=== PATIENT | male | born 1995 | race Caucasian/White ===

== ENCOUNTER 2018-11-20 09:03 | Emergency (ER) | payer BC ==
--- NOTE | 2018-11-20 09:06 | EDPHY ---
H & P Source: Patient Exam Limitations: No limitations Time Seen by Provider: 11/20/18 09:06 HPI/ROS: HPI: This is a 23-year-old male who presents with Chief Complaint: Left index finger laceration Location: Left index finger Quality: Laceration Duration: Prior to arrival Signs and Symptoms: + bleeding, no radiation, no numbness, no weakness, no tingling, no incontinence, no decreased range of motion, no swelling,+ pain, no fever Timing: Acute Severity: Mild Context: Patient is right-hand dominant, current with his tetanus vaccination, presents with accidentally cutting the volar aspect of his left index finger while cutting an avocado for breakfast this morning. Patient reports that he immediately started to bleed and he applied direct pressure. Every time he would remove the pressure it would continued to bleed. He reports that he felt mild pain at the time but no pain at this time. He denies decreased range of motion, radiation, weakness, paresthesias. Modifying Factors: Direct pressure Comment: ROS: A comprehensive 10 system review of systems is otherwise negative aside from elements mentioned in the history of present illness. MEDICAL/SURGICAL/SOCIAL HISTORY: Medical history: Seasonal allergies. Does not take any regular medications. Surgical history: Denies Social history: Admits to social marijuana and alcohol use. CONSTITUTIONAL: Well-developed, well-nourished, young adult white male, awake and alert, no obvious distress HEENT: Atraumatic and normocephalic, PERRL, EOMI. Nares patent; no rhinorrhea; no nasal mucosal edema. Tympanic membranes clear. Oropharynx clear, no exudate and moist pink mucosa. Airway patent. No lymphadenopathy. No meningismus. Cardiovascular: Normal S1/S2, regular rate, regular rhythm, without murmur rub or gallop. PULMONARY/CHEST: Symmetrical and nontender. Clear to auscultation bilaterally. Good air movement. No accessory muscle usage. ABDOMEN: Soft, nondistended, nontender, no rebound, no guarding, no peritoneal signs, no masses or organomegaly. No CVAT. EXTREMITIES: 2/2 radial pulses, [employer] strength 5/5, left index finger volar aspect at the PIP joint shows 2.5 cm, deep, simple, linear laceration with scant amount of active bleeding. DI P/PIP/MCP joints have full range of flexion extension. Light touch sensation intact., no clubbing, no cyanosis or edema. NEUROLOGICAL: no focal neuro deficits. GCS 15. SKIN: Warm and dry, no erythema. no rash. Good capillary refill. (Jackie Thomason) Constitutional: Initial Vital Signs Temperature (C) 36.4 C 11/20/18 09:04 Heart Rate 71 11/20/18 09:04 Respiratory Rate 16 11/20/18 09:04 Blood Pressure 103/69 11/20/18 09:04 O2 Sat (%) 96 11/20/18 09:04 Allergies/Adverse Reactions: No Known Allergies Allergy (Unverified 11/20/18 09:07) Home Medications: Medication Instructions Recorded Citalopram 11/20/18 Medical Decision Making Procedures: Procedure: Laceration repair. Verbal consent was obtained from the patient. The 2.5 cm, deep, linear laceration on the left index finger was anesthetized in the usual fashion using 2 mL of 1% lidocaine without epinephrine. The wound was irrigated, draped and explored to its base with a gloved finger. There were no deep structures involved. No tendon injury was identified. The wound was repaired with #3, 5- 0 Prolene in simple interrupted pattern. Good hemostasis was achieved and patient tolerated procedure well. Xeroform and clean sterile dressing applied. The procedure was performed by myself. (Jackie Thomason) ED Course/Re-evaluation: Vital signs reviewed and stable upon arrival. Tetanus booster up-to-date. Local anesthesia provided and copiously irrigated Laceration repaired with # 3 nonabsorbable sutures Xeroform and clean sterile dressing applied Verbal and written wound care instructions provided No signs of neurovascular compromise/tenting of skin/compartment syndrome/ extremities and joints examined above and below area of concern and are neurovascularly intact. This patient was seen under the supervision of my secondary supervising physician. I evaluated and cared for this patient independently. (Jackie Thomason) I did not see this patient while he was in the emergency department. However his care was discussed with the PA while the patient was in the department. I agree with treatment plan and management (Blayne Bravo) Differential Diagnosis: Differential diagnosis includes but is not limited to laceration, foreign body, nerve injury, tendon injury, nail injury. (Jackie Thomason) Departure - Departure Disposition: Home, Routine, Self-Care Clinical Impression: Laceration of index finger of left hand without complication Qualifiers: Encounter type: initial encounter Qualified Code(s): S61.211A - Laceration without foreign body of left index finger without damage to nail, initial encounter Condition: Good Instructions: Care For Your Stitches (ED), Finger Laceration (ED) Additional Instructions: Keep the dressing dry and in place for 48 hours. After 48 hours, you may remove the dressing; wash the site daily with mild soap and water; then pat dry. Apply topical antibiotic ointment and keep covered with sterile dressing until fully healed. Do not soak in a bathtub or go swimming until sutures are removed. Take Tylenol 650 mg every 4 hours and/or Ibuprofen 600 mg every 8 hours with food as needed for pain. Follow-up with orthopedic hand if you experience weakness or decreased range of motion. Wound Care Follow-Up: Removal of sutures in [7-10] days. Suture removal is complimentary in uncomplicated cases. Infection or abnormal findings would require reevaluation by the MD. In that case, you may be billed. Referrals: Willian Collins MD [Medical Doctor] - As per Instructions
[2018-11-20 09:07] VITALS: BP 103/69
== END 2018-11-20 09:52 | disposition home or self-care (01) ==
PROC: 0HQGXZZ Repair Left Hand Skin, External Approach (ICD-10-PCS; principal; 2018-11-20)
DX: S61.211A Laceration without foreign body of left index finger without damage to nail, initial encounter (principal); W26.0XXA Contact with knife, initial encounter; Y93.G1 Activity, food preparation and clean up